=== PATIENT | male | born 1930 | race Caucasian/White ===

== ENCOUNTER 2016-12-26 17:19 | Inpatient (IN) | payer OTHER ==
--- NOTE | 2016-12-26 17:20 | EDPHY ---
H & P Time Seen by Provider: 12/26/16 17:20 HPI/ROS: CHIEF COMPLAINT: Altered and bradycardic HISTORY OF PRESENT ILLNESS: Patient called staff at his independent living because he could not find his keys. He was found to be bradycardic into the 30s by EMS. On arrival he is confused and does not know the city, or the year or the month and states that he is 69 years old. In the EMS transport the patient apparently was able to answer questions appropriately. He denies chest pain or headache. He denies any previous medical conditions. He denies alcohol or drug use. REVIEW OF SYSTEMS: Eye: no change in vision ENT: no sore throat Cardiac: no chest pain or syncope Pulmonary: no cough or SOB Abdomen: no vomiting, diarrhea, abdominal pain Musculoskeletal: No neck pain Skin: no rash Neuro: no headache Constitutional: no fever : no urinary symptoms A comprehensive 10 point review of systems is otherwise negative aside from elements mentioned in the history of present illness, but complete review of systems and HPI is not obtainable because of the patient's altered mental status. PAST MEDICAL HISTORY: Denies Social history: No alcohol or tobacco General Appearance: Alert and conversant, cooperative. Eyes: No scleral icterus. ENT, Mouth: Normal mucous membranes. Respiratory: Normal respiratory effort, breath sounds equal, lungs are clear to auscultation. Cardiovascular: Bradycardic and irregular Gastrointestinal: Abdomen is soft and non tender. Neurological: Alert but only oriented to self. Not to month or place ear or age. Normally conversant. Face symmetric, normal movement and sensation in all extremities. Visual mclean intact to confrontation. Skin: Warm and dry, no rashes. Musculoskeletal: No peripheral edema and no joint swelling. Normal range of motion of the neck Psychiatric: Not agitated. Emergency Department course/MDM: Patient does not meet criteria for a stroke activation or stroke alert because last known normal time is unknown. Plan for noncontrast head CT, EKG, labs to include troponin and protime. 1851: Admit for neurologic evaluation, and cardiac evaluation with elevated troponin in the context of new onset atrial fibrillation. Angiography ordered query stroke with word-finding difficulty. Constitutional: Initial Vital Signs Temperature (C) 36.9 C 12/26/16 17:27 Heart Rate 45 L 12/26/16 17:27 Respiratory Rate 20 12/26/16 17:27 Blood Pressure 160/84 H 12/26/16 17:27 O2 Sat (%) 95 12/26/16 17:27 O2 Delivery Mode Room Air Allergies/Adverse Reactions: No Known Allergies Allergy (Unverified 12/26/16 17:23) Home Medications: Medication Instructions Recorded NK [No Known Home Meds] 12/26/16 Medical Decision Making - Diagnostics EKG Interpretation: 12-lead EKG interpreted by me; official reading is in trace master. My interpretation is atrial fibrillation at rate in the 40s, right bundle branch block and left posterior fascicular block. Imaging: CT head personally interpreted and reviewed with Dr. William Khoury at 6:02 p.m. shows small vessel microvascular disease otherwise negative. Angiography reviewed with Dr. Khoury at 7:43 p.m. shows no large vessel intracranial or cervical occlusion, does have calcification at the origin of 1 vertebral but with flow present. Consult/Admit Bed Type: [place] [id number] - Data Points Laboratory Results: Laboratory Results 12/26/16 17:30 12/26/16 17:30 12/26/16 12/26/16 12/26/16 17:30 17:30 17:30 WBC 8.91 10^3/uL 10^3/uL (3.80-9.50) RBC 5.83 10^6/uL 10^6/uL (4.40-6.38) Hgb 17.9 g/dL H g/dL (13.7-17.5) Hct 52.2 % H % (40.0-51.0) MCV 89.5 fL fL (81.5-99.8) MCH 30.7 pg pg (27.9-34.1) MCHC 34.3 g/dL g/dL (32.4-36.7) RDW 14.6 % % (11.5-15.2) Plt Count 149 10^3/uL L 10^3/uL (150-400) MPV 11.4 fL fL (8.7-11.7) Neut % (Auto) 54.8 % % (39.3-74.2) Lymph % (Auto) 31.6 % % (15.0-45.0) [place] % (Auto) 8.9 % % (4.5-13.0) Eos % (Auto) 3.9 % % (0.6-7.6) Baso % (Auto) 0.6 % % (0.3-1.7) Nucleat RBC Rel Count 0.0 % % (0.0-0.2) Absolute Neuts (auto) 4.88 10^3/uL 10^3/uL (1.70-6.50) Absolute Lymphs (auto) 2.82 10^3/uL 10^3/uL (1.00-3.00) Absolute Monos (auto) 0.79 10^3/uL 10^3/uL (0.30-0.80) Absolute Eos (auto) 0.35 10^3/uL 10^3/uL (0.03-0.40) Absolute Basos (auto) 0.05 10^3/uL 10^3/uL (0.02-0.10) Absolute Nucleated RBC 0.00 10^3/uL 10^3/uL (0-0.01) Immature Gran % 0.2 % % (0.0-1.1) Immature Gran # 0.02 10^3/uL 10^3/uL (0.00-0.10) PT 14.9 SEC SEC (12.0-15.0) INR 1.17 H (0.83-1.16) Sodium 141 mEq/L mEq/L (134-144) Potassium 4.9 mEq/L mEq/L (3.5-5.2) Chloride 109 mEq/L mEq/L (97-110) Carbon Dioxide 21 mEq/l L mEq/l (22-31) Anion Gap 11 mEq/L mEq/L (8-16) BUN 26 mg/dL H mg/dL (7-23) Creatinine 0.9 mg/dL mg/dL (0.7-1.3) Estimated GFR > 60 Glucose 99 mg/dL mg/dL (70-100) Calcium 9.7 mg/dL mg/dL (8.5-10.4) Troponin I 0.035 ng/mL H ng/mL (0-0.034) Medications Given: Discontinued Medications Midazolam HCl (Versed) 1 mg IVP ONCE ONE Stop: 12/26/16 19:08 Last Admin: 12/26/16 19:35 Dose: Not Given Departure - Departure Disposition: [facility] Clinical Impression: Bradycardia Atrial fibrillation Qualifiers: Atrial fibrillation type: unspecified Qualified Code(s): I48.91 - Unspecified atrial fibrillation Altered mental status, unspecified Qualifiers: Altered mental status type: disorientation Qualified Code(s): R41.0 - Disorientation, unspecified Condition: Fair
--- NOTE | 2016-12-26 17:30 | CPEKG ---
Heart Rate: 47 RR Interval: 1277 QRSD Interval: 138 QT Interval: 520 QTC Interval: 460 QRS [place]: 120 T Wave [place]: -39 EKG Severity - ABNORMAL ECG - EKG Impression: ATRIAL FIBRILLATION, V-RATE 42-53 EKG Impression: RBBB AND LPFB Electronically Signed By: Mauro Harrington 26-Dec-2016 17:38:53
[2016-12-26 17:47] LABS: % IMMATURE GRANULYOCYTES 0.2 % (0.0-1.1); ABSOLUTE IMMATURE GRANULOCYTES 0.02 10^3/uL (0.00-0.10); ADD DIFF? NO; ADD MORPH? NO; ADD SCAN? NO; ATYPICAL LYMPHOCYTE FLAG 0 (0-99); FRAGMENT RBC FLAG 0 (0-99); HEMATOCRIT 52.2 % (40.0-51.0); HEMOGLOBIN 17.9 g/dL (13.7-17.5); LEFT SHIFT FLG 0 (0-99); LIPEMIA HEMOLYSIS FLAG 90 (0-99); MEAN CELL HEMOGLOBIN 30.7 pg (27.9-34.1); MEAN CELL HEMOGLOBIN CONCENTR. 34.3 g/dL (32.4-36.7); MEAN CELL VOLUME 89.5 fL (81.5-99.8); MEAN PLATELET VOLUME 11.4 fL (8.7-11.7); PLATELET CLUMPS FLAG 0 (0-99); PLATELET COUNT 149 10^3/uL (150-400); RED BLOOD CELL COUNT 5.83 10^6/uL (4.40-6.38); RED CELL DISTRIBUTION WIDTH 14.6 % (11.5-15.2)
[2016-12-26 17:58] LABS: INR 1.17 (0.83-1.16); PROTIME(PATIENT) 14.9 SEC (12.0-15.0)
[2016-12-26 18:00] LABS: ANION GAP 11 mEq/L (8-16); CALCIUM 9.7 mg/dL (8.5-10.4); CARBON DIOXIDE 21 mEq/l (22-31); CHLORIDE 109 mEq/L (97-110); CREATININE 0.9 mg/dL (0.7-1.3); GLOMERULAR FILTRATION RATE > 60; GLUCOSE 99 mg/dL (70-100); POTASSIUM 4.9 mEq/L (3.5-5.2); SODIUM 141 mEq/L (134-144)
[2016-12-26 18:11] LABS: TROPONIN I 0.035 ng/mL (0-0.034)
[2016-12-26] MEDS ORDERED: IOPAMIDOL (ISOVUE 370) 100 ML BTL IV ONE (18:54)
[2016-12-26] MEDS: MIDAZOLAM 2 MG/2 ML VIAL IVP ONE ×2 (19:30→19:35)
[2016-12-26] MEDS ORDERED: ONDANSETRON 4 MG/2 ML VIAL IVP PRN (21:05)
[2016-12-26] MEDS ORDERED: ACETAMINOPHEN 325 MG TAB PO PRN (21:05)
[2016-12-26] MEDS ORDERED: ONDANSETRON DISINTEGRATING 4 MG TAB PO PRN (21:05)
--- NOTE | 2016-12-26 22:22 | GHP ---
[f rep st] HISTORY AND PHYSICAL DATE OF ADMISSION: 12/26/2016 CHIEF COMPLAINT: Altered mental status. HISTORY OF PRESENT ILLNESS: This is an 86-year-old male with uncertain past medical history. He ap parently lives in independent living and patient called the staff because he could not find his keys . They noticed that he was confused and sent him to the emergency department. At this point, he is not complaining of any chest pain, shortness of breath, weakness, headache, numbness, tingling, pal pitations. He is confused. He denies any previous cardiac history. REVIEW OF SYSTEMS: Limited review of systems is obtained secondary to patient's altered mental stat us. PAST MEDICAL HISTORY: He denies any of that. SOCIAL HISTORY: No smoking or alcohol. FAMILY HISTORY: Unable to be obtained. PHYSICAL EXAMINATION: VITAL SIGNS: Afebrile, blood pressure is 156/75, heart rate is 42 oxygen sat uration 95% on 3 L. GENERAL: The patient is well developed, in no apparent distress. HEENT: Lyudmila cteric sclerae. Moist mucous membranes. NECK: Supple. No thyromegaly. LUNGS: Good effort. Yuval ar to auscultation bilaterally. CARDIOVASCULAR: Bradycardic. No murmurs or gallops. ABDOMEN: Po sitive bowel sounds. Soft, nontender, nondistended. No hepatosplenomegaly. EXTREMITIES: No clubb ing, cyanosis, or edema. SKIN: Without rash, dry, intact. NEUROLOGIC: Confused to place and time . He has some word-finding difficulties. 5/5 strength in all 4 extremities. Cranial nerves 2-12 a re grossly intact. PSYCHIATRIC: Normal mood and affect. LABORATORY DATA: CBC is essentially normal. Chemistries normal. Troponin slightly elevated at 0.0 35. EKG, personally reviewed and interpreted, shows AFib, AFlutter, with a heart rate in the 40s. 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 ASSESSMENT: This is an 86-year-old male presenting with atrial fibrillation with bradycardia and en cephalopathy. PLAN: 1. Atrial fibrillation with bradycardia. This is actually fairly unusual. We will get an echocard iogram and have Cardiology see the patient. Because of the possibility of a stroke, I am not going to fully anticoagulate at this time. We will start aspirin and DVT prophylaxis dosing of Lovenox. If there is no stroke on MRI, then could consider full anticoagulation. 2. Encephalopathy, unclear cause. We will check a UA. He is having some word-finding difficulties and, thus, we will get an MRI of the brain to rule out CVA. He is not a tPA candidate, as his onse t of symptoms is unknown. 3. Mild troponin elevation. We will cycle these and continue aspirin. /[id number]/MODL
[2016-12-26] MEDS: ASPIRIN EC 325 MG TAB PO SCH (23:00)
[2016-12-27 06:55] LABS: % IMMATURE GRANULYOCYTES 0.2 % (0.0-1.1); ABSOLUTE IMMATURE GRANULOCYTES 0.02 10^3/uL (0.00-0.10); ADD DIFF? NO; ADD MORPH? NO; ADD SCAN? NO; ATYPICAL LYMPHOCYTE FLAG 10 (0-99); FRAGMENT RBC FLAG 0 (0-99); HEMATOCRIT 50.9 % (40.0-51.0); HEMOGLOBIN 17.2 g/dL (13.7-17.5); LEFT SHIFT FLG 0 (0-99); LIPEMIA HEMOLYSIS FLAG 90 (0-99); MEAN CELL HEMOGLOBIN 30.4 pg (27.9-34.1); MEAN CELL HEMOGLOBIN CONCENTR. 33.8 g/dL (32.4-36.7); MEAN CELL VOLUME 89.9 fL (81.5-99.8); MEAN PLATELET VOLUME 11.9 fL (8.7-11.7); PLATELET CLUMPS FLAG 10 (0-99); PLATELET COUNT 151 10^3/uL (150-400); RED BLOOD CELL COUNT 5.66 10^6/uL (4.40-6.38); RED CELL DISTRIBUTION WIDTH 14.5 % (11.5-15.2)
[2016-12-27 07:22] LABS: ALANINE AMINOTRANSFERASE 61 IU/L (21-72); ALBUMIN 3.6 g/dL (3.5-5.0); ALKALINE PHOSPHATASE 58 IU/L (38-126); ANION GAP 8 mEq/L (8-16); ASPARTATE AMINOTRANSFERASE 34 IU/L (17-59); BILIRUBIN,TOTAL 1.1 mg/dL (0.1-1.4); CALCIUM 9.2 mg/dL (8.5-10.4); CARBON DIOXIDE 21 mEq/l (22-31); CHLORIDE 111 mEq/L (97-110); CREATININE 0.8 mg/dL (0.7-1.3); GLOMERULAR FILTRATION RATE > 60; GLUCOSE 87 mg/dL (70-100); POTASSIUM 4.7 mEq/L (3.5-5.2); SODIUM 140 mEq/L (134-144); TOTAL PROTEIN 6.6 g/dL (6.3-8.2)
[2016-12-27 07:32] LABS: TROPONIN I 0.057 ng/mL (0-0.034)
[2016-12-27 08:11] LABS: COLOR YELLOW; LEUKOCYTE ESTERASE,URINE NEGATIVE (NEGATIVE); NITRITE,URINE NEGATIVE (NEGATIVE)
[2016-12-27] MEDS: ASPIRIN EC 325 MG TAB PO SCH (08:17)
[2016-12-27] MEDS ORDERED: ENOXAPARIN 40 MG/0.4 ML SYR SC SCH (09:00)
--- NOTE | 2016-12-27 11:40 | PDCARCONS ---
Cardiology Consult Reason for Consult: confusion Chief Complaint: none, but patient with moderate to severe confusion noted Requesting Physician: Hospitalist History of Present Illness: Patient is an 86 y/o male with uncertain past medical/cardiovascular history ( patient is in atrial fibrillation), but uncertain on HTN, HLP, DM, or CAD, who presented to [facility] from assisted living facility with confusion (looking for car keys, and thinking he was 69 years of age). In the room today, the patient was severely confused, and is not aware that he is in a hospital at present. ECG/ telemetry with atrial fibrillation and slow ventricular response (40-50 bpm typically noted). Old records from past are not available. No records are noted in the hard chart. 12 point review of systems is unremarkable, but the patient is moderately to severely confused. History Information - Allergies/Home Medication List Allergies/Adverse Reactions: No Known Allergies Allergy (Unverified 12/26/16 17:23) Home Medications: NK [No Known Home Meds] 12/26/16 [Last Taken Unknown] - Past Medical History atrial fibrillation - Surgical History Additional surgical history: unknown - Family History Additional family history: unknown - Social History Smoking Status: Never smoked Alcohol Use: None Drug Use: None Cardiac History - Cardiac History Cardiac Risk Factors: age > 65, male Timing/Duration: Unsure Severity: severe Associated Symptoms: other (confusion) KENO Risk Evaluation age greater or equal to 65: yes greater or equal to 3 CAD risk factors: no known CAD(stenosis greater or eqaul to 50%): no ASA use in past 7 days: no severe angina(greater or equal to 2 episodes in 24hrs): no EKG ST changes greater or equal to 0.5mm: no positive cardiac marker: yes Total Score: 2 KEON Score: 8.3% risk Physical Exam Temp Pulse Resp BP Pulse Ox 36.4 C 42 L 16 145/83 H 93 12/27/16 04:00 12/27/16 08:27 12/27/16 08:27 12/27/16 08:27 12/27/16 08:27 O2 (L/minute) 3 Constitutional: no apparent distress, appears nourished, not in pain Eyes: PERRL Ears, Nose, Mouth, Throat: moist mucous membranes Cardiovascular: systolic murmur, irregularly irregular Peripheral Pulses: 2+: dorsalis-pedis (R), dorsalis-pedis (L) Respiratory: no respiratory distress, no rales or rhonchi, clear to auscultation Gastrointestinal: normoactive bowel sounds Skin: warm, no induration Musculoskeletal: full muscle strength, no muscle tenderness, normal joint ROM Neurologic: sensation intact bilaterally, CN II-XII Intact, other (confused ( severe)) Psychiatric: poor insight, poor judgement, poor memory Lab and Imaging 12/27/16 06:35 12/27/16 06:35 WBC 8.51 10^3/uL (3.80-9.50) 12/27/16 06:35 RBC 5.66 10^6/uL (4.40-6.38) 12/27/16 06:35 Hgb 17.2 g/dL (13.7-17.5) 12/27/16 06:35 Hct 50.9 % (40.0-51.0) 12/27/16 06:35 MCV 89.9 fL (81.5-99.8) 12/27/16 06:35 MCH 30.4 pg (27.9-34.1) 12/27/16 06:35 MCHC 33.8 g/dL (32.4-36.7) 12/27/16 06:35 RDW 14.5 % (11.5-15.2) 12/27/16 06:35 Plt Count 151 10^3/uL (150-400) 12/27/16 06:35 MPV 11.9 fL (8.7-11.7) H 12/27/16 06:35 Neut % (Auto) 51.7 % (39.3-74.2) 12/27/16 06:35 Lymph % (Auto) 33.5 % (15.0-45.0) 12/27/16 06:35 [place] % (Auto) 8.5 % (4.5-13.0) 12/27/16 06:35 Eos % (Auto) 5.6 % (0.6-7.6) 12/27/16 06:35 Baso % (Auto) 0.5 % (0.3-1.7) 12/27/16 06:35 Nucleat RBC Rel Count 0.0 % (0.0-0.2) 12/27/16 06:35 Absolute Neuts (auto) 4.40 10^3/uL (1.70-6.50) 12/27/16 06:35 Absolute Lymphs (auto) 2.85 10^3/uL (1.00-3.00) 12/27/16 06:35 Absolute Monos (auto) 0.72 10^3/uL (0.30-0.80) 12/27/16 06:35 Absolute Eos (auto) 0.48 10^3/uL (0.03-0.40) H 12/27/16 06:35 Absolute Basos (auto) 0.04 10^3/uL (0.02-0.10) 12/27/16 06:35 Absolute Nucleated RBC 0.00 10^3/uL (0-0.01) 12/27/16 06:35 Immature Gran % 0.2 % (0.0-1.1) 12/27/16 06:35 Immature Gran # 0.02 10^3/uL (0.00-0.10) 12/27/16 06:35 PT 14.9 SEC (12.0-15.0) 12/26/16 17:30 INR 1.17 (0.83-1.16) H 12/26/16 17:30 Sodium 140 mEq/L (134-144) 12/27/16 06:35 Potassium 4.7 mEq/L (3.5-5.2) 12/27/16 06:35 Chloride 111 mEq/L (97-110) H 12/27/16 06:35 Carbon Dioxide 21 mEq/l (22-31) L 12/27/16 06:35 Anion Gap 8 mEq/L (8-16) 12/27/16 06:35 BUN 23 mg/dL (7-23) 12/27/16 06:35 Creatinine 0.8 mg/dL (0.7-1.3) 12/27/16 06:35 Estimated GFR > 60 12/27/16 06:35 Glucose 87 mg/dL (70-100) 12/27/16 06:35 Calcium 9.2 mg/dL (8.5-10.4) 12/27/16 06:35 Total Bilirubin 1.1 mg/dL (0.1-1.4) 12/27/16 06:35 AST 34 IU/L (17-59) 12/27/16 06:35 ALT 61 IU/L (21-72) 12/27/16 06:35 Alkaline Phosphatase 58 IU/L (38-126) 12/27/16 06:35 Troponin I 0.057 ng/mL (0-0.034) H 12/27/16 06:35 Total Protein 6.6 g/dL (6.3-8.2) 12/27/16 06:35 Albumin 3.6 g/dL (3.5-5.0) 12/27/16 06:35 Urine Color YELLOW 12/27/16 07:50 Urine Appearance CLEAR 12/27/16 07:50 Urine pH 5.0 (5.0-7.5) 12/27/16 07:50 Ur Specific [place] > 1.035 (1.002-1.030) H 12/27/16 07:50 Urine Protein NEGATIVE (NEGATIVE) 12/27/16 07:50 Urine Ketones NEGATIVE (NEGATIVE) 12/27/16 07:50 Urine Blood NEGATIVE (NEGATIVE) 12/27/16 07:50 Urine Nitrate NEGATIVE (NEGATIVE) 12/27/16 07:50 Urine Bilirubin NEGATIVE (NEGATIVE) 12/27/16 07:50 Urine Urobilinogen NEGATIVE EU (0.2-1.0) 12/27/16 07:50 Ur Leukocyte Esterase NEGATIVE (NEGATIVE) 12/27/16 07:50 Urine Glucose NEGATIVE (NEGATIVE) 12/27/16 07:50 Visualized and Interpreted Chest x-ray results: Yes Chest X-ray Interpretation: infiltrate EKG Interpretation: Positive for: other (atrial fibrillation) Telemetry: ongoing atrial fibrillation A/P Assessment: 86 y/o male with severe confusion, and poor judgement who has not been seen for several years by the [facility] (followed the patient in the past) , who presents via EMS from assisted living with reports of "new" confusion. Patient with notable atrial fibrillation and slow ventricular response (40-50 bpm has been noted). Cardiology was consulted given concerns that confusion is secondary to atrial fibrillation and slow ventricular response. Uncertain on this link. Would be very helpful to have old records and old reports of the patient's mental status over the past several months. With an "acute" and "new " change in mental status, infection is more a concern. Minor troponin bump has been noted, but no dynamic ST/T wave changes are noted on ECG. Plan: More information about the patient's past mental status would be helpful. Cardiology with concerns about discussion of PPM (to assist with improvement in rates) without knowledge of (a) recently normal heart rates (60-80 bpm), (b) normal mental status with that finding, and (c) no infective process postulated. Cardiology will continue to follow this patient while an inpatient. Would also consider discussion with family (reports of son in [facility]) to determine what actions, procedures, and interventions, would be acceptable.
--- NOTE | 2016-12-27 12:00 | ECHO ---
[id number] + + [id number] : : [place] [address] : : [phone] + + Adult Echocardiographic Report + ---+ :Name: LAURY ALEXANDER WStudy Date: 12/27/2016 10:32 AM : : Hospital Admission Number: [id number] Location: 208: :: 1930 Gender: Male Height: 68 in : :Age: 86 yrs Race: WH Weight: 170 lb : :Reason For Study: Atrial fibrillation : : BSA: 1.9 meters2 : + ---+ MMode/2D Measurements \T\ Calculations IVSd: 1.3 cm LVIDd: 5.0 cm FS: 38.2 % Ao root diam: LVPWd: 1.2 cm LVIDs: 3.1 cm EDV(Teich): 4.0 cm 120.3 ml LA dimension: ESV(Teich): 4.6 cm 38.3 ml EF(Teich): 68.2 % LVLd ap4: 6.9 cm SV(MOD-sp4): EDV(MOD-sp4): 43.0 ml 65.0 ml LVLs ap4: 6.0 cm ESV(MOD-sp4): 22.0 ml EF(MOD-sp4): 66.2 % Normal Measurement Values: + + :LVIDd (3.5-5.7cm) IVSd (0.6-1.1cm) LVPWd (0.6-1.1cm) Aortic Root (2.0-3.7cm)Left Atrium (1.5-4.0cm): :LV Vol(d) (76-115ml) LV Vol(s) (29-48ml) Ejec Fraction (50-65%)PV Jake (0.6- 1.2m/s) TV Jake (0.4-1.0m/s) : :MV E Jake (0.8-1.0m/s)MV A Jake (0.3-1.0m/s)LVOT Jake (0.7-1.2m/s) Asc Ao Jake ( 0.9-1.8m/s) : + + Doppler Measurements \T\ Calculations MV E max jake: 100.7 cm/sec Ao V2 max: 131.7 cm/sec TR max jake: 279.6 cm/sec Ao max P.9 mmHg TR max P.3 mmHg RAP systole: 5.0 mmHg RVSP(TR): 36.3 mmHg Left Ventricle The left ventricle is normal in size. There is normal left ventricular wall thickness. Left ventricular systolic function is normal. Ejection Fraction = 60-65%. No regional wall motion abnormalities noted. Right Ventricle The right ventricle is normal in size and function. Atria The left atrium is mildly dilated. The right atrium is mildly dilated. Mitral Valve The mitral valve is normal in structure and function. There is mild mitral regurgitation. Tricuspid Valve Normal tricuspid valve. There is moderate tricuspid regurgitation. Right ventricular systolic pressure is 42mmHg. There is Doppler evidence for mild pulmonary hypertension. Aortic Valve The aortic valve is trileaflet. The aortic valve opens well. There is no aortic stenosis. Trace aortic regurgitation. Pulmonic Valve The pulmonic valve is not well visualized. Mild pulmonic valvular regurgitation. Great Vessels The aortic root is normal size. Mildly dilated ascending aorta. Pericardium/Pleural There is no pericardial effusion. Conclusion A complete two-dimensional transthoracic echocardiogram was performed (2D, M-mode, Doppler and color flow Doppler). (1) Left ventricular systolic ejection fraction was normal (60-65%) - normal wall motion (2) No left ventricular hypertrophy (3) Diastolic dysfunction was present - patient was in atrial fibrillation over course of this study (4) Normal right ventricular size and function (5) Mild biatrial dilation (6) Mild mitral regurgitation (7) Trileaflet aortic valve with physiologic insufficiency, but no sclerosi (8) Moderate tricuspid regurgitation - RVSP was estimated to be 40 mm Hg (9) Poor visualization of the pulmonic valve with mild insufficiency by dopper (10) Mild dilation to the ascending aorta (11) No comparison echocardiograms Final Reading Physician: Lee Ann Wu signed on 12/27/2016 11:59 AM Ordering Physician: Ade Christie Performed By: Karen Mabry RDCS
[2016-12-27] MEDS ORDERED: LORazepam 2 MG/ML INJ IVP ONE (12:09)
[2016-12-27] MEDS ORDERED: LORazepam 2 MG/ML INJ ONE (12:11)
--- NOTE | 2016-12-27 12:38 | HOSPPROG ---
Hospitalist Progress Note Assessment/Plan: 86-year-old man with a benign past medical history is admitted with confusion. Today I am really unable to get any information from him. He has been seen previously by [facility] however his last office visit was in 2013 at which time he had no significant complaints. He is on no medications. I attempted to call his son Jorge gautam but was unable to get through to him and did leave a message. I did personally review his EKG which showed AFib with a slow ventricular response and his chest x-ray. # altered mental status, acute encephalopathy unclear if this is related to expressive a aphasia or confusion. The patient has no slurred speech but is not making any sense at times when speaking. I do have a high suspicion that he has had a stroke in have an MRI without contrast currently pending. 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 * Consider anticoagulation for AFib once MRI is done. * Check further evaluation with serologies for altered mental status. # AFib with slow rate, sick sinus syndrome discussed with Cardiology. Patient 's rates have typically been in the 40 range unclear if this is responsible for his symptoms as his blood pressure has been adequate. * Continue evaluation with echo and consider anticoagulation * Defer to Cardiology regarding pacemaker, unfortunately would not do it at this time given his confusion and inability to consent # DVT prophylaxis, currently on Lovenox Subjective: Patient confused and unable to make sense while talking to me he is able to answer yes no questions fairly appropriately and obeys simple commands. Objective: Vital Signs Temp Pulse Resp BP Pulse Ox 36.4 C 42 L 16 145/83 H 93 12/27/16 04:00 12/27/16 08:27 12/27/16 08:27 12/27/16 08:27 12/27/16 08:27 Laboratory Results 12/27/16 06:35 12/27/16 06:35 12/26/16 12/27/16 12/28/16 05:59 05:59 05:59 Intake Total 170 Balance 170 PT 14.9 SEC (12.0-15.0) 12/26/16 17:30 INR 1.17 (0.83-1.16) H 12/26/16 17:30 - Physical Exam Constitutional: no apparent distress, appears nourished, not in pain Eyes: PERRL, EOMI Ears, Nose, Mouth, Throat: moist mucous membranes Cardiovascular: irregularly irregular, bradycardia Respiratory: no respiratory distress, no rales or rhonchi, clear to auscultation Gastrointestinal: normoactive bowel sounds, soft, non-tender abdomen, no palpable masses Genitourinary: no bladder fullness, No yanez in urethra Skin: warm, normal color Musculoskeletal: no joint effusions, No muscular tenderness Neurologic: weakness (Slightly increased weakness on the right lower extremities compared to the left), No AAOx3, No pronator drift, No facial droop Psychiatric: interacting appropriately, encephalopathic ICD10 Worksheet Patient Problems: Problems Problem Status Onset Atrial fibrillation Acute Bradycardia Acute Altered mental status, unspecified Acute
--- NOTE | 2016-12-27 15:18 | GCON ---
[f rep st] CONSULTATION NEUROLOGIC CONSULTATION REFERRING PHYSICIAN: Yael Tsai MD HISTORY: The patient is an 86-year-old gentleman I am asked to see in neurologic consultation keri ewing cause for altered mental state. The patient came to the emergency room yesterday around 5 p.m. He was seen by Dr. Mauro Harrington at the time. The history was ascertained from staff at [facility] who apparently brought him or had him come to the hospital because he could not find his keys. He was found to have bradycardia by EMS in the 30s, and he was confused and did know the city or t he year or the month, and said he was 69 years old. He had reportedly answered some questions for E MS that were appropriate. His hospitalization has been challenging because he has been followed by [facility], and there is no fam sylvie here to clarify information, and apparently all of this is still lacking for accurate details of his true baseline. He came to the emergency department, and had vascular disease and CT angiogram showing severe right vertebral artery stenosis, but no other significant anomalies on the labs. He had some laboratory studies that were relatively unremarkable. He was admitted by Dr. Christie last evening. At that time, he was assessed as having encephalopathy o f unclear cause with word-finding difficulties and plan for an MRI and was never considered a tPA ca ndidate because of his unknown onset of symptoms. He has had documented atrial fibrillation with br adycardia since hospitalization, and Cardiology also saw him, and recommends obtaining more records, and for now, monitoring his status. Dr. Tsai saw him today, and documented these same changes and became suspicious that perhaps a strok e is present as well, and MRI is still pending. The patient cannot provide me any meaningful histor y. He is lethargic and resistant to examination. He forcefully closes his eyes. He will not speak to me, but groans a bit when I pinch or try to get movement. I cannot detect a definite asymmetry of strength. Pupils 3 mm and reactive. Extraocular movements are at least partially intact. His f acial grimace is symmetric. Reflexes are 1+. As noted, he has a withdrawal to painful stimulation in the extremities. We were unable to obtain more detailed history beyond that, but it is not thought that he smokes or drinks, and we do not know any other detailed medical problems that may or may not be present, but a pparently he had earlier said that he did not have any problems and was not on any regular medicines . LABORATORY DATA: Labs today are still relatively unremarkable on the CBC and chemistry except for s ome mild elevation of troponin. IMPRESSION: I spent a total of 55 minutes of unit time reviewing his case, evaluating the patient, and gathering further data. We do not have an explanation right now for his encephalopathy and work up is still underway to look for a cause. No infection has been identified. Merely having atrial f ibrillation and bradycardia should not produce this state. I agree in looking for stroke causing al tered mental status, and this could be left hemisphere with a language problem. Also, confusion can be a manifestation of a right parietal infarct, so all of this will be assessed adequately once he gets MRI scan, but that has not occurred yet. He does have severe vertebral stenosis on the right, but that also should not account for this degree of change, and there is not a specific finding on t he exam to suggest specific brainstem pathology. For now, we need further data, and the son has not been reached yet. Dr. Tsai tried to reach him, but he is in [place]. [place] records would b e needed and helpful. Findings on the MRI will be coyle to determining actually what has occurred. H is current NIH stroke scale would be 4. Dr. Romeo Camilo, will be taking over responsibilities gabbi ferguson, but I will check later for results of MRI to see about whether we get more of a precise answer for central nervous system cause of symptoms. /[id number]/MODL
[2016-12-27] MEDS: ENOXAPARIN 80 MG/0.8 ML SYR SC SCH (20:48)
[2016-12-28] MEDS: ENOXAPARIN 80 MG/0.8 ML SYR SC SCH ×2 (09:14→20:22)
[2016-12-28] MEDS: ASPIRIN EC 325 MG TAB PO SCH (09:16)
--- NOTE | 2016-12-28 10:33 | HOSPPROG ---
Hospitalist Progress Note Assessment/Plan: 86-year-old man with a benign past medical history is admitted with confusion. Today I am really unable to get any information from him. He has been seen previously by [facility] however his last office visit was in 2013 at which time he had no significant complaints. He is on no medications. I discussed his case with his son Priya in [place]. Unfortunately priya in him only talk every couple months and the last time his son saw him was a year ago. At that time he did note that his dad had a lot of sticky notes reminding him of things all over his apartment to help cope with his memory but he otherwise was able to carry on a good conversation at [place]. # altered mental status, acute encephalopathy MRI was unremarkable and his CTA did show a stenosis at the right vertebral however he had good blood flow going past the stenosis. * I suspect he does have some underlying dementia but his other sore logic workup is negative * Unclear how much the slow heart rate and AFib may be contributing to his mental status * Will continue therapies including a speech cog evaluation # AFib with slow rate, sick sinus syndrome discussed with Cardiology. Patient 's rates have typically been in the 40 range unclear if this is responsible for his symptoms as his blood pressure has been adequate. * Continue anticoagulation. * Discussed with Cardiology unclear pacemaker would be beneficial given his sick sinus syndrome # DVT prophylaxis, currently on Lovenox Subjective: Patient a little bit more clear he is alert and oriented to [facility] and [facility]. He also knew that Gayla was president however he was unable to give me some basic information on the date. He denies any pain. He denies any problems with his memory or does not feel that he is more confused than usual Objective: Vital Signs Temp Pulse Resp BP Pulse Ox 36.3 C 36 L 18 131/68 H 94 12/28/16 07:01 12/28/16 07:01 12/28/16 07:01 12/28/16 07:01 12/28/16 07:01 Laboratory Results 12/27/16 06:35 12/27/16 06:35 12/27/16 12/28/16 12/29/16 05:59 05:59 05:59 Intake Total 170 150 Balance 170 150 PT 14.9 SEC (12.0-15.0) 12/26/16 17:30 INR 1.17 (0.83-1.16) H 12/26/16 17:30 - Physical Exam Constitutional: no apparent distress, appears nourished, not in pain Eyes: PERRL, EOMI Ears, Nose, Mouth, Throat: moist mucous membranes, hearing normal, ears appear normal Cardiovascular: irregularly irregular, bradycardia Respiratory: no respiratory distress, clear to auscultation Gastrointestinal: normoactive bowel sounds, soft, non-tender abdomen, no palpable masses Genitourinary: no bladder fullness Skin: warm, normal color Musculoskeletal: no joint effusions Neurologic: No AAOx3, No facial droop Psychiatric: not anxious, encephalopathic ICD10 Worksheet Patient Problems: Problems Problem Status Onset Atrial fibrillation Acute Bradycardia Acute Altered mental status, unspecified Acute
--- NOTE | 2016-12-28 11:37 | PDCARPN ---
Cardiology Progress Note Chief Complaint: Altered Mental status. Living at [facility]. Assessment/Plan: Assessment: Jorge is a 86 y/o male with no significant medical history. He has seen a [facility] physician, but JERRELL was several years ago. ALTERED MENTAL STATUS: Per [facility] staff, he has always been quiet and pleasant, and Man of few words. Recently they had noted a decline in his memory. When speaking with him he is unable to tell me where he is today, or where he lives. He attempts to answer questions, however unable to recall information to answer. Dr Yael Tsai did call his Son in [place] listed as next of Kin. They do not have a close relationship. No other family in the area that has been identified. BRADYCARDIA with HR range 36 to 40's, Atrial Fibrillation. MRI done to check for etiology of Bradycardia -- possible CVA (as he has difficulty with word finding). No area of infarct was identified. Remains in atrial fibrillation. ATRIAL FIBRILLATION with ventricular rate 36 to 48. Unable to treat with medication due to his Bradycardia. He is currently on ASA 325 mg With Lovenox for anticoagulation. Will not attempt to start other anticoagulation agent at this time due to probable upcoming Pacemaker placement. I did discuss with Jorge the possibility of needing a pacemaker to assist with his heart rate. He is agreeable, however due to his Mentation status, he likely does not have a good understanding. Will need to discuss with his Son to get consent. Dr Yovanny Baig has been asked to Consult for possible Pacemaker placement. He agrees to evaluate him this afternoon. Plan:Dr Baig to evaluate him for possible Permanent Pacemaker, due to Bradycardia. 12/28/16 12:02 12/28/16 12:07 Reviewed/Discussed With: hospitalist, multidisciplinary team Objective: Vital Signs (8 Hrs) Temp Pulse Resp BP Pulse Ox 12/28/16 11:23 43 L 18 107/66 94 12/28/16 07:01 36.3 C 36 L 18 131/68 H 94 Intake/Output (24 Hrs) 12/27/16 12/28/16 12/29/16 05:59 05:59 05:59 Intake Total 170 150 Balance 170 150 Intake: Oral (ml) 150 150 IV Infused (ml) 20 Other: Weight 77.4 kg Intake Quantity Yes Sufficient Result Diagrams: 12/27/16 06:35 12/27/16 06:35 Cardiac Labs: Cardiac Lab Results (72 Hrs) 12/27/16 06:35 Troponin I 0.057 H Telemetry: Atrial Fibrillation with Ventricular rate 46 bpm. - Physical Exam Constitutional: healthy appearing, no apparent distress Cardiovascular: no murmurs, no rubs, irregularly irregular Peripheral Pulses: 2+: dorsalis-pedis (R), dorsalis-pedis (L) Respiratory: clear to auscultate bilat, no crackles, no wheezes Skin: warm, no edema Neurologic: other (confused) Psychiatric: cooperative ICD10 Worksheet Patient Problems: Problems Problem Status Onset Altered mental status, unspecified Acute Atrial fibrillation Acute Bradycardia Acute
--- NOTE | 2016-12-28 20:11 | NEUROPROG ---
Assessment: CC: F/U for confusion HPI: Please see Dr. Murphy full consult dated 12/27/16. I assumed care of the inpatient neurology service today. The patient is awake and oriented to person and place but not date. He is seated in a chair eating lunch. His brain MRI showed no acute changes and his son reported to the hospitalist that he was requiring memory aids last year so it appears the patient likely has an underlying dementia with a superimposed acute confusional spell that has now improved. Labs: 12/27/16- TSH wnl, B12 wnl, RPR neg, UA neg, CMP unremarkable Rads: 12/27/16- Brain MRI w/o con: mod CMVD, atrophy 12/26/16- CTA head/neck: right vert stenosis, spinal DJD Assessment: 1. Probable Dementia 2. Superimposed Acute confusional state: possible from dementia or maybe aggravated by chronic bradycardia 3. Afib, Bradycardia 4. Right Vertebral Stenosis: This does not appear symptomatic Recs: - Continue ASA daily for stroke prevention given right vert stenosis is stroke risk - Work with PCM outpatient to ensure good control of blood pressure, LDL, and glucose - Cards following for bradycardia - Outpatient follow up with neurology (Dr. Murphy or Dr. Camilo) in 4 weeks to assess for underlying dementia and consider treatment options - Likely need for placement based on cog assessment 35 min spent with patient, majority of time spent counseling on dementia, memory changes, and treatment options. Objective: Vital Signs Temp Pulse Resp BP Pulse Ox 36.3 C 49 L 20 107/66 94 12/28/16 07:01 12/28/16 15:34 12/28/16 15:34 12/28/16 15:34 12/28/16 15:34 Laboratory Results 12/27/16 06:35 12/27/16 06:35 12/27/16 12/28/16 12/29/16 05:59 05:59 05:59 Intake Total 170 150 800 Balance 170 150 800 PT 14.9 SEC (12.0-15.0) 12/26/16 17:30 INR 1.17 (0.83-1.16) H 12/26/16 17:30 Allergies/Adverse Reactions: No Known Allergies Allergy (Unverified 12/26/16 17:23)
[2016-12-29 04:32] LABS: HEMATOCRIT 51.9 % (40.0-51.0); HEMOGLOBIN 17.5 g/dL (13.7-17.5); MEAN CELL HEMOGLOBIN 30.6 pg (27.9-34.1); MEAN CELL HEMOGLOBIN CONCENTR. 33.7 g/dL (32.4-36.7); MEAN CELL VOLUME 90.7 fL (81.5-99.8); RED BLOOD CELL COUNT 5.72 10^6/uL (4.40-6.38); RED CELL DISTRIBUTION WIDTH 14.5 % (11.5-15.2)
[2016-12-29 05:00] LABS: POTASSIUM 4.1 mEq/L (3.5-5.2)
[2016-12-29 05:01] LABS: ANION GAP 9 mEq/L (8-16); CALCIUM 8.9 mg/dL (8.5-10.4); CARBON DIOXIDE 20 mEq/l (22-31); CHLORIDE 111 mEq/L (97-110); CREATININE 0.9 mg/dL (0.7-1.3); GLOMERULAR FILTRATION RATE > 60; GLUCOSE 82 mg/dL (70-100); SODIUM 140 mEq/L (134-144)
[2016-12-29] MEDS: ENOXAPARIN 80 MG/0.8 ML SYR SC SCH (08:47)
[2016-12-29] MEDS: ASPIRIN EC 325 MG TAB PO SCH (08:47)
--- NOTE | 2016-12-29 10:48 | PDCARPN ---
Cardiology Progress Note Assessment/Plan: Assessment: Jorge is a 86 y/o male with no significant medical history. He has seen a [facility] physician, but JERRELL was several years ago. ALTERED MENTAL STATUS: Per [facility] staff, he has always been quiet and pleasant, and Man of few words. Recently they had noted a decline in his memory. When speaking with him he is unable to tell me where he is today, or where he lives. He attempts to answer questions, however unable to recall information to answer. Dr Yael Tsai did call his Son in [place] listed as next of Kin. They do not have a close relationship. No other family in the area that has been identified. BRADYCARDIA with HR range 36 to 40's, Atrial Fibrillation. MRI done to check for etiology of Bradycardia -- possible CVA (as he has difficulty with word finding). No area of infarct was identified. Remains in atrial fibrillation. ATRIAL FIBRILLATION with ventricular rate 36 to 48. Unable to treat with medication due to his Bradycardia. He is currently on ASA 325 mg With Lovenox for anticoagulation. Will not attempt to start other anticoagulation agent at this time due to probable upcoming Pacemaker placement. I did discuss with Jorge the possibility of needing a pacemaker to assist with his heart rate. He is agreeable, however due to his Mentation status, he likely does not have a good understanding. Will need to discuss with his Son to get consent. Dr Yovanny Baig has been asked to Consult for possible Pacemaker placement. He agrees to evaluate him this afternoon. Plan:Dr Baig to evaluate him for possible Permanent Pacemaker, due to Bradycardia. 12/28/16 12:02 12/28/16 12:07 12/29/16 12:09 Up in chair with no complaints. He hesitates, and is unsure how to answer questions. Very pleasant and cooperative. BRADYCARDIA: His rates in the 50's today. He denies lightheadedness. Dr Baig consulted yesterday. See his full note for recommendations. Dr Baig did not feel that a Pacemaker would improve his mentation status, and that his heart rates were not significant to recommend a Pacemaker. ATRIAL FIBRILLATION with slow ventricular response. He is asymptomatic. His heart rate will not support addition of medication for rhythm management. He is currently on ASA 325 mg QD. CHADsVASc2 score of "2" with recommendation for oral anticoagulation, if he is in a supervised setting. He is to be discharged to SNF facility. In discussion with Dr Su and pharmacist, it is recommended to start him on Eliquis 5 mg BID, or equivalent anticoagulant. DEMENTIA was diagnosed by Neurology. He was seen by Romeo Camilo MD yesterday , with recommendation to follow up with neurology in 4 weeks to evaluate for appropriate Dementia medical therapy. BY MRI of Head, he has Right Ventral Stenosis, which is a stroke risk factor with recommendation to remain on ASA 325 mg daily. His cardiac findings and recommendations were discussed with Yael Tsai MD- Hospitalist. Will sign-off for now. Subjective: Up in chair. States that he feels good. No palpitations, SOB, lightheadedness , or chest pain. Reviewed/Discussed With: hospitalist, multidisciplinary team Time Spent With Patient: 30 min Objective: Vital Signs (8 Hrs) Temp Pulse Resp BP Pulse Ox 12/29/16 08:00 36.4 C 38 L 14 133/63 H 95 12/29/16 03:43 36.4 C 39 L 14 134/81 H 92 Intake/Output (24 Hrs) 12/28/16 12/29/16 12/30/16 05:59 05:59 05:59 Intake Total 150 800 Balance 150 800 Intake: Oral (ml) 150 800 Other: Intake Quantity Yes Sufficient Number of Voids Toilet 1 Number of Stools Toilet 1 Result Diagrams: 12/29/16 03:42 12/29/16 03:42 Cardiac Labs: Cardiac Lab Results (72 Hrs) 12/27/16 06:35 Troponin I 0.057 H - Physical Exam Constitutional: no apparent distress Cardiovascular: irregularly irregular, No regular rate and rhythm Peripheral Pulses: 2+: dorsalis-pedis (R), dorsalis-pedis (L) Respiratory: clear to auscultate bilat, no crackles, no wheezes Neurologic: other (confused) Psychiatric: cooperative, interactive ICD10 Worksheet Patient Problems: Problems Problem Status Onset Atrial fibrillation Acute Bradycardia Acute Altered mental status, unspecified Acute
--- NOTE | 2016-12-29 13:10 | HOSPPROG ---
Hospitalist Progress Note Assessment/Plan: 86-year-old man with a benign past medical history is admitted with confusion. He has been seen previously by [facility] however his last office visit was in 2013 at which time he had no significant complaints. He is on no medications. I discussed his case with his son Priya in [place]. Unfortunately priya and him only talk every couple months and the last time his son saw him was a year ago. At that time he did notice that his dad had a lot of sticky notes reminding him of things all over his apartment to help cope with his memory but he otherwise was able to carry on a good conversation at [employer] over the phone, which his son admits was relatively superficial. The staff at [facility] has noted he has been more seclusive and has not participated in events as much over the last several months. # altered mental status, MRI was unremarkable and his CTA did show a stenosis at the right vertebral however he had good blood flow going past the stenosis. Likely acute exacerbation of dementia, He is not able to return to his independent living situation and work up negative for reversible causes. * Awaiting placement, case management says he will be able to transfer tomorrow * No further hospital evaluation needed at this time * He will follow up with Neurology as an outpatient to discuss possible medications like Aricept * I had a long discussion with his son Priya regarding the patient's prognosis and care plan after hospitalization # AFib with slow rate, sick sinus syndrome discussed with Cardiology. Patient 's rates have typically been in the 40 range unclear if this is responsible for his symptoms as his blood pressure has been adequate. * Continue anticoagulation. * Discussed with Cardiology unclear pacemaker would be beneficial given his sick sinus syndrome # DVT prophylaxis, on Eliquis Disposition: Patient will be transferred to skilled rehab tomorrow in bed available, from there he will likely transition to a assisted living or memory care unit. Son is aware of the issues and likely diagnosis of dementia. He will need follow-up with Neurology in 4 weeks. Subjective: No complaints poor short-term memory Objective: Vital Signs Temp Pulse Resp BP Pulse Ox 36.2 C 42 L 15 130/69 H 91 L 12/29/16 11:21 12/29/16 11:21 12/29/16 11:21 12/29/16 11:21 12/29/16 11:21 Laboratory Results 12/29/16 03:42 12/29/16 03:42 12/28/16 12/29/16 12/30/16 05:59 05:59 05:59 Intake Total 150 800 240 Balance 150 800 240 PT 14.9 SEC (12.0-15.0) 12/26/16 17:30 INR 1.17 (0.83-1.16) H 12/26/16 17:30 - Physical Exam Constitutional: no apparent distress Eyes: PERRL Cardiovascular: regular rate and rhythym, no murmur, rub, or gallop Respiratory: no respiratory distress, no rales or rhonchi Gastrointestinal: normoactive bowel sounds, soft, non-tender abdomen Neurologic: No AAOx3 Psychiatric: interacting appropriately, not anxious ICD10 Worksheet Patient Problems: Problems Problem Status Onset Atrial fibrillation Acute Bradycardia Acute Altered mental status, unspecified Acute
--- NOTE | 2016-12-29 13:25 | NEUROPROG ---
Assessment: Neurology will sign off as there does not appear to be any more acute neurologic issues and pt will need outpatient f/u with neurology in 4 weeks. However we will be happy to become re-involved if needed. Objective: Vital Signs Temp Pulse Resp BP Pulse Ox 36.2 C 42 L 15 130/69 H 91 L 12/29/16 11:21 12/29/16 11:21 12/29/16 11:21 12/29/16 11:21 12/29/16 11:21 Laboratory Results 12/29/16 03:42 12/29/16 03:42 12/28/16 12/29/16 12/30/16 05:59 05:59 05:59 Intake Total 150 800 240 Balance 150 800 240 PT 14.9 SEC (12.0-15.0) 12/26/16 17:30 INR 1.17 (0.83-1.16) H 12/26/16 17:30 Allergies/Adverse Reactions: No Known Allergies Allergy (Unverified 12/26/16 17:23)
[2016-12-29] MEDS: APIXABAN 5 MG TAB PO SCH (20:05)
[2016-12-30 07:38] VITALS: O2SAT 92
[2016-12-30] MEDS: APIXABAN 5 MG TAB PO SCH (09:24)
--- NOTE | 2016-12-30 11:06 | PDCARPN ---
Cardiology Progress Note Chief Complaint: Mental status changes Assessment/Plan: Assessment: 1. Atrial fibrillation 2. Bradycardia. 3. Dementia Plan: This is a late dictation, I saw the patient on 12/28/2016. I discussed his case with Diane Herron and with Dr. Yael Tsai at length. 86-year-old male with longstanding persistent atrial fibrillation and underlying slow ventricular response. He does have heart rates between 30 to 40 beats per minute at night, but denies any symptoms whatsoever. He has not had presyncope or syncope. At best, this is a class 2B indication for pacemaker. I think his mental status changes are not related to his bradycardia. At the time of my interview with him, his heart rates were in the 50s and he had some recall of location and person but not to time. 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 I believe that his mental status changes are related to dementia and not to hypoperfusion caused by Nikolas arrhythmias. I do not believe that implanting a pacemaker will improve his mental status. I have discussed this extensively with Dr. Yael Tsai. Of course if there is any change in his clinical status i.e. if he has presyncope or syncope or more significant bradycardia, consideration would be given to single-chamber permanent pacemaker. Thank you for this consultation. I will sign off at this time, please call me if you need any further assistance. I will leave decision regarding long-term anticoagulation to the primary care team. 12/30/16 11:02 Subjective: patient does not know why he is in the hospital. He is oriented to place and person but not to time. Time Spent With Patient: 30 minutes Objective: Vital Signs (8 Hrs) Temp Pulse Resp BP Pulse Ox 12/30/16 07:32 36.3 C 46 L 19 153/81 H 92 12/30/16 04:00 36.4 C 39 L 15 108/80 94 Intake/Output (24 Hrs) 12/28/16 12/29/16 12/30/16 11:59 11:59 11:59 Intake Total 150 1040 680 Balance 150 1040 680 Intake: Oral (ml) 150 1040 680 Other: Intake Quantity Yes Sufficient Number of Voids Toilet 1 1 Number of Stools Toilet 1 Result Diagrams: 12/29/16 03:42 12/29/16 03:42 Telemetry: atrial fibrillation with intermittent bradycardia, heart rates in the 30s at night. At the time of exam his heart rates were in the 50s. ICD10 Worksheet Patient Problems: Problems Problem Status Onset Atrial fibrillation Acute Bradycardia Acute Altered mental status, unspecified Acute
--- NOTE | 2016-12-30 11:53 | PDDCSUM ---
Discharge Summary Discharge Summary: HPI AND HOSPITAL COURSE 86-year-old man with a benign past medical history is admitted with confusion. He has been seen previously by [facility] however his last office visit was in 2013 at which time he had no significant complaints. He is on no home medications. We discussed his case with his son Priya in [place]. Unfortunately priya and him only talk every couple months and the last time his son saw him was a year ago. At that time he did notice that his dad had a lot of sticky notes reminding him of things all over his apartment to help cope with his memory but he otherwise was able to carry on a good conversation at [place] over the phone, which his son admits was relatively superficial. The staff at [facility] has noted he has been more seclusive and has not participated in events as much over the last several months. His mentation is now back to baseline. He is going back to [facility]. He will f/u with Neurology in 4 weeks. He was evaluated for possible pacemaker and felt not to require this at this time. He will f/u with Cards in 4-8 weeks. Please see below for details per problem list DDX: # Dementia: altered mental status, MRI was unremarkable and his CTA did show a stenosis at the right vertebral however he had good blood flow going past the stenosis. Likely acute exacerbation of dementia, He is not able to return to his independent living situation and work up negative for reversible causes. * He will follow up with Neurology as an outpatient to discuss possible medications like Aricept # AFib with slow rate, sick sinus syndrome discussed with Cardiology. Patient 's rates have typically been in the 40 range unclear if this is responsible for his symptoms as his blood pressure has been adequate. * Continue anticoagulation with Eliquis * Discussed with Cardiology unclear pacemaker would be beneficial at this time. Can f/u with them per above. Discharge exam: NAD ALERT X 1 MMM NO JVD RRR, NO PEDAL EDEMA CTAB S/NT/ND NO EDEMA MOOD APPROPRIATE SKIN WARM DISCHARGE MEDS: SEE MED REC F/U: PER ABOVE. TOTAL TIME SPENT ON DISCHARGE IS 35 MINUTES
--- NOTE | 2016-12-30 12:27 | PDIAF ---
- Diagnosis Diagnosis: CONFUSION Code Status: Full Code - Medication Management Discharge Medications: Medications to Continue on Transfer Acetaminophen [Tylenol 325mg (*)] 650 mg PO Q4HRS PRN #0 tab 12/30/16 [Last Taken Unknown] Apixaban [Eliquis] 5 mg PO BID #60 tab 12/30/16 [Last Taken Unknown] Discharge Medications: Refer to the Discharge Home Medication list for PRN reason. - Orders Services needed: Registered Nurse, Physical Therapy, Occupational Therapy, Speech Language Pathologist Diet Recommendation: no restrictions on diet Diet Texture: Regular Texture Diet - Follow Up Care Current Providers and Referrals: Patient,NotPresent [Unknown] - As per Instructions
[2016-12-30 13:34] VITALS: BP 132/71; PULSE 44; RESP 14; TEMP 97.6
== END 2016-12-30 15:12 | DRG 884 ==
LOC: EDUNIT# → F2W 19:52
PROVIDERS: ADMIT Internal Medicine; ATTEND Family Medicine
DX: F03.90 Unspecified dementia, unspecified severity, without behavioral disturbance, psychotic disturbance, mood disturbance, and anxiety (principal); I48.91 Unspecified atrial fibrillation; R00.1 Bradycardia, unspecified; Z79.01 Long term (current) use of anticoagulants
CPT/HCPCS: 82607-90; 92507-GN; 92523-GN; 97116-GP; 97161-GP; 97165-GO; 97530-GO; 97535-GO; G8978-GP-CJ; G8979-GP-CI; G8987-GO-CJ; G8987-GO-CK; G8988-GO-CI; G8989-GO-CJ; J1650; J2060; J2250; Q9967

== ENCOUNTER 2018-02-27 09:09 | Emergency (ER) | payer OTHER ==
--- NOTE | 2018-02-27 09:14 | EDPHY ---
H & P Time Seen by Provider: 02/27/18 09:13 - Medical/Surgical History Hx Asthma: No Hx Chronic Respiratory Disease: No Hx Diabetes: No Hx Cardiac Disease: No Hx Renal Disease: No Hx Cirrhosis: No Hx Alcoholism: No Hx HIV/AIDS: No Hx Splenectomy or Spleen Trauma: No Other PMH: none per pt. poor memory. - Social History Smoking Status: Never smoked Constitutional: Initial Vital Signs Temperature (C) 36.7 C 02/27/18 09:20 Heart Rate 40 L 02/27/18 09:20 Respiratory Rate 16 02/27/18 09:20 Blood Pressure 146/77 H 02/27/18 09:20 O2 Sat (%) 93 02/27/18 09:20 O2 Delivery Mode Room Air Allergies/Adverse Reactions: No Known Allergies Allergy (Verified 02/27/18 09:19) Home Medications: Medication Instructions Recorded Pradaxa 02/27/18 Medical Decision Making ED Course/Re-evaluation: CHIEF COMPLAINT: Low heart rate, lethargic HISTORY OF PRESENT ILLNESS: The patient is an anticoagulated (Eliquis) 88 y/o male with a history of dementia and a-fib arriving via EMS for a low heart rate and feeling lethargic. In December he as admitted to this hospital for bradycardia (rate in the 40's) and a-fib. At this time he was evaluated by cardiology who decided not to place a pacemaker. Per long term staff, he has had decreased mental status for the past several weeks and has been falling asleep during conversations. The patient states that he has been more tired than normal. Denies chest pain, shortness of breath, abdominal pain, urinary or bowel complaints, fever. REVIEW OF SYSTEMS: A 10 point review of systems was performed and is negative with the exception of the elements mentioned in the history of present illness. PHYSICAL EXAM: HR, BP, O2 Sat, RR. Temp noted General Appearance: Alert, well hydrated, appropriate, and non-toxic appearing. Head: Atraumatic without scalp tenderness or obvious injury Eyes: Pupils equal, round, reactive to light and accommodation, EOMI, no trauma , no injection. Ears: Clear bilaterally, no perforation, normal landmarks Nose: Atraumatic, no rhinorrhea, clear. Throat: There is no erythema or exudates, no lesions, normal tonsils, mucus membranes moist. Neck: Supple, nontender, no lymphadenopathy. Respiratory: No retractions, no distress, no wheezes, and no accessory muscle use. Lungs are clear to auscultation bilaterally. Cardiovascular: Sinus bradycardia, 2/6 systolic ejection murmur, no rubs, or gallops. Bilateral carotid, radial, dorsalis pedis, and posterior tibial pulses intact. Good capillary refill all extremities. Gastrointestinal: Abdomen is soft, nontender, non-distended, no masses, no rebound, no guarding, no peritoneal signs. Musculoskeletal: Normal active ROM of all extremities, atraumatic. Neurological: Alert, appropriate, and interactive. The patient has normal DTRs and non-focal cranial nerves, motor, sensory, and cerebellar exam. Skin: No rashes, good turgor, no nodules on palpation. Past medical history: A-fib, dementia Past surgical history: Denies Family history: Denies Social history: Lives at [facility], retired, single DIAGNOSTICS/PROCEDURES/CRITICAL CARE TIME: The 12 lead EKG was interpreted by myself as a-flutter with a rate of 41. See hard copy and/or "tracemaster" electronic copy for interpretation. DIFFERENTIAL DIAGNOSIS: The differential diagnosis for the patient's lethargy included but was not limited to hypoglycemia, infectious process, electrolyte abnormality, head injury, neurologic process, anemia, cardiac process, and intoxicants. MEDICAL DECISION MAKING: The patient is an anticoagulated (Eliquis) 88 y/o male with a history of dementia and a-fib arriving via EMS for a low heart rate and feeling lethargic. He has been previously admitted for slow-rate a-fib. At this time they decided not to place a pacemaker. On exam he is bradycardic with a rate of 41 and has a 2/6 systolic ejection murmur. At this time he is answering questions appropriately and maintaining good vital signs. I-STAT and EKG ordered. 0914: I interpreted EKG as a-flutter with a rate of 41. 0931: Patient's labs are normal. He is safe to be discharged home with an outpatient follow up with his PCP. - Data Points Laboratory Results: 02/27/18 09:29 POC Hgb 18.0 gm/dL H gm/dL (13.7-17.5) POC Hct 53 % H % (40-51) POC Sodium 144 mEq/L mEq/L (135-145) POC Potassium 4.3 mEq/L mEq/L (3.3-5.0) POC Chloride 107 mEq/L mEq/L (97-110) POC BUN 25 mg/dL H mg/dL (7-23) POC Creatinine 1.2 mg/dL mg/dL (0.7-1.3) POC Glucose 108 mg/dL H mg/dL (70-100) Point of Care Test Results: Chemistry 02/27/18 09:29 POC Sodium 144 mEq/L mEq/L (135-145) POC Potassium 4.3 mEq/L mEq/L (3.3-5.0) POC Chloride 107 mEq/L mEq/L (97-110) POC BUN 25 mg/dL H mg/dL (7-23) POC Creatinine 1.2 mg/dL mg/dL (0.7-1.3) POC Glucose 108 mg/dL H mg/dL (70-100) ISTAT H&H 02/27/18 09:29 POC Hgb 18.0 gm/dL H gm/dL (13.7-17.5) POC Hct 53 % H % (40-51) Departure - Departure Disposition: Home, Routine, Self-Care Clinical Impression: Bradycardia, Lethargic Atrial flutter Qualifiers: Atrial flutter type: unspecified Qualified Code(s): I48.92 - Unspecified atrial flutter Condition: Good Instructions: Atrial Flutter (ED), Bradycardia (ED) Additional Instructions: 1. Follow-up with your primary doctor within 72 hours. 2. Return to the Emergency Department for fever, chest pain, shortness of breath , increasing pain or other worsening of condition. Referrals: [facility],. [Clinic] - As per Instructions Report Scribed for: Chas De Report Scribed by: Raya Crystal Date of Report: 02/27/18 Time of Report: 09:16
--- NOTE | 2018-02-27 09:17 | CPEKG ---
Heart Rate: 41 RR Interval: 1463 QRSD Interval: 124 QT Interval: 624 QTC Interval: 516 QRS [place]: 115 T Wave [place]: 237 EKG Severity - ABNORMAL ECG - EKG Impression: A-FLUTTER/FIBRILLATION W/ COMPLETE AV BLOCK EKG Impression: RBBB AND LPFB EKG Impression: BORDERLINE ST DEPRESSION, LATERAL LEADS Electronically Signed By: Chas De 27-Feb-2018 14:52:35
[2018-02-27 10:09] VITALS: BP 123/86
== END 2018-02-27 10:26 | disposition home or self-care (01) ==
LOC: EDUNIT#
DX: I48.92 Unspecified atrial flutter (principal); R53.83 Other fatigue
CPT/HCPCS: 82435-PO; 82565-PO; 82947-PO; 84132-PO; 84295-PO; 84520-PO; 85014-PO